=== PATIENT | female | born 1950 | race Caucasian/White ===

== ENCOUNTER 2024-01-01 17:15 | Emergency (ER) | payer MEDICARE, OTHER ==
[2024-01-01 17:19] VITALS: BP 160/65; PULSE 77
[2024-01-01] MEDS: Sodium Chloride 0.9% 1,000 ML IV SCH (17:43)
[2024-01-01 17:44] LABS: BASOPHILS ABSOLUTE AUTO 0.05 10^3/uL (0.00-0.50); BASOPHILS PERCENT AUTO 0.3 % (0-1); EOSINOPHILS ABSOLUTE AUTO 0.02 10^3/uL (0.00-1.50); EOSINOPHILS PERCENT AUTO 0.1 % (0-6); HEMATOCRIT 36.1 % (37.0-47.0); HEMOGLOBIN 11.3 g/dL (12.0-16.0); IMMATURE GRAN ABSOLUTE AUTO 0.11 10^3/uL (0.00-0.49); IMMATURE GRAN PERCENT AUTO 0.6 % (0.0-4.9); LYMPHOCYTES ABSOLUTE AUTO 2.27 10^3/uL (0.60-5.00); LYMPHOCYTES PERCENT AUTO 12.9 % (24-44); MEAN CORPUSCULAR HEMOGLOBIN 27.8 pg (27.0-32.0); MEAN CORPUSCULAR HGB CONC 31.3 g/dL (32.0-36.0); MEAN CORPUSCULAR VOLUME 88.9 fL (83.0-97.0); MONOCYTES ABSOLUTE AUTO 1.16 10^3/uL (0.00-1.50); MONOCYTES PERCENT AUTO 6.6 % (0-10); NEUTROPHILS ABSOLUTE AUTO 13.98 x10^3/uL (1.80-8.00); NEUTROPHILS PERCENT AUTO 79.5 % (41-71); PLATELET COUNT,PLT 284 10^3/uL (150-400); RED BLOOD CELL COUNT 4.06 x10^6/uL (4.00-5.50); WHITE BLOOD CELL COUNT,WBC 17.6 10^3/uL (4.0-11.0)
[2024-01-01] MEDS: Ondansetron 4 MG/2 ML SDV IVPUSH STA (17:46)
[2024-01-01 17:58] LABS: ALBUMIN 2.2 g/dL (3.4-5.0); BILIRUBIN TOTAL 0.2 mg/dL (0.0-1.0); C-REACTIVE PROTEIN 1.9 mg/dL (<=0.50); CALCIUM 8.1 mg/dL (8.4-10.1); CREATININE 1.7 mg/dL (0.6-1.0); EST CRCL DRUG DOSING (CG) 23.65 mL/min; POTASSIUM,K 4.3 mEq/L (3.5-5.0); PROTEIN TOTAL,TP 5.8 g/dL (6.4-8.2)
[2024-01-01 18:00] LABS: APPEARANCE,URINE CLEAR (CLEAR); BILIRUBIN,URINE NEGATIVE (NEGATIVE); COLOR,URINE YELLOW (YELLOW); GLUCOSE,URINE NEGATIVE (NEGATIVE); KETONES,URINE NEGATIVE (NEGATIVE); LEUKOCYTE ESTERASE,URINE NEGATIVE (NEGATIVE); NITRITE,URINE NEGATIVE (NEGATIVE); OCCULT BLOOD,URINE TRACE-INTACT (NEGATIVE); PH,URINE 5.5 (4.5-8.0); PROTEIN,URINE >=300 mg/dL (NEGATIVE); UROBILINOGEN,URINE 0.2 EU/dL (0.2-1.0)
[2024-01-01 18:16] LABS: BACTERIA,URINE OCCASIONAL /HPF (NOT SEEN); EPITHELIAL CELLS,URINE MODERATE /HPF (NOT SEEN); WBC,URINE 0-5 /HPF (0-5)
[2024-01-01] MEDS: Take Home: Ondansetron 4 MG Tab.DIS, 2 Tab Pack PO ONE (19:23)
[2024-01-01] MEDS: Vancomycin 125 MG Cap PO SCH (19:26)
== END 2024-01-01 20:00 | disposition home or self-care (01) ==
LOC: CC.ED 17:15
DX: A04.72 Enterocolitis due to Clostridium difficile, not specified as recurrent (principal); I10 Essential (primary) hypertension; Z79.899 Other long term (current) drug therapy
CPT/HCPCS: 36415; 80053; 81001; 82272; 85025; 86140; 87493; 96361; 96374; 99284; A9270; J2405; J7030

== ENCOUNTER 2024-02-13 15:00 | Inpatient (IN) | payer MEDICARE, OTHER ==
[2024-02-13] MEDS: Ondansetron 4 MG Tab.DIS PO ONE (15:20)
[2024-02-13] MEDS: Acetaminophen 500 MG Tab PO ONE (15:20)
[2024-02-13 15:33] LABS: APPEARANCE,URINE TURBID (CLEAR); BILIRUBIN,URINE NEGATIVE (NEGATIVE); COLOR,URINE YELLOW (YELLOW); GLUCOSE,URINE NEGATIVE (NEGATIVE); KETONES,URINE NEGATIVE (NEGATIVE); LEUKOCYTE ESTERASE,URINE LARGE (NEGATIVE); NITRITE,URINE NEGATIVE (NEGATIVE); OCCULT BLOOD,URINE LARGE (NEGATIVE); PROTEIN,URINE >=300 mg/dL (NEGATIVE); UROBILINOGEN,URINE 0.2 EU/dL (0.2-1.0)
[2024-02-13 15:45] LABS: BACTERIA,URINE MANY /HPF (NOT SEEN); RBC,URINE 50-75 /HPF (0-5); SQUAMOUS EPITHELIAL CELLS,UR NOT SEEN /HPF (NOT SEEN); WBC,URINE PACKED /HPF (0-5)
[2024-02-13 15:49] LABS: BASOPHILS ABSOLUTE AUTO 0.05 10^3/uL (0.00-0.50); BASOPHILS PERCENT AUTO 0.3 % (0-1); EOSINOPHILS ABSOLUTE AUTO 0.01 10^3/uL (0.00-1.50); EOSINOPHILS PERCENT AUTO 0.1 % (0-6); HEMOGLOBIN 11.2 g/dL (12.0-16.0); IMMATURE GRAN ABSOLUTE AUTO 0.06 10^3/uL (0.00-0.49); IMMATURE GRAN PERCENT AUTO 0.4 % (0.0-4.9); LYMPHOCYTES ABSOLUTE AUTO 2.44 10^3/uL (0.60-5.00); LYMPHOCYTES PERCENT AUTO 14.4 % (24-44); MEAN CORPUSCULAR HEMOGLOBIN 28.1 pg (27.0-32.0); MEAN CORPUSCULAR HGB CONC 31.1 g/dL (32.0-36.0); MEAN CORPUSCULAR VOLUME 90.5 fL (83.0-97.0); MONOCYTES PERCENT AUTO 3.5 % (0-10); NEUTROPHILS ABSOLUTE AUTO 13.75 x10^3/uL (1.80-8.00); NEUTROPHILS PERCENT AUTO 81.3 % (41-71); PLATELET COUNT,PLT 301 10^3/uL (150-400); RED BLOOD CELL COUNT 3.98 x10^6/uL (4.00-5.50); WHITE BLOOD CELL COUNT,WBC 16.9 10^3/uL (4.0-11.0)
[2024-02-13 16:02] LABS: ALBUMIN 2.1 g/dL (3.4-5.0); BILIRUBIN TOTAL 0.5 mg/dL (0.0-1.0); C-REACTIVE PROTEIN 5.57 mg/dL (<=0.50); CALCIUM 8.6 mg/dL (8.4-10.1); CREATININE 1.6 mg/dL (0.6-1.0); EST CRCL DRUG DOSING (CG) 25.13 mL/min; PROTEIN TOTAL,TP 5.9 g/dL (6.4-8.2)
[2024-02-13 16:04] LABS: LACTIC ACID 2.6 mmol/L (0.4-2.0)
[2024-02-13] MEDS ORDERED: Sodium Chloride 0.9% 10 ML Syringe FLUSH PRN (16:15)
[2024-02-13] MEDS: cefTRIAXone 2 GM Vial IVPUSH ONE (16:44)
[2024-02-13] MEDS ORDERED: Albuterol 6.7 GM Inhaler INH PRN ×2 (17:34→18:22)
[2024-02-13] MEDS ORDERED: Ondansetron 4 MG Tab.DIS PO PRN (17:38)
[2024-02-13] MEDS ORDERED: Ondansetron 4 MG/2 ML SDV IV PRN (17:38)
[2024-02-13] MEDS ORDERED: Acetaminophen 325 MG Tab PO PRN (17:38)
[2024-02-13] MEDS: Sodium Chloride 0.9% 1,000 ML IV ONE (18:10)
[2024-02-13] MEDS ORDERED: Formoterol/Mometasone 100-5 MCG 8.8 GM Inhaler INH PRN ×2 (18:24→18:26)
[2024-02-13] MEDS: Sodium Chloride 0.9% 1,000 ML IV SCH (19:14)
[2024-02-13] MEDS: amLODIPine 2.5 MG Tab PO SCH (19:50)
[2024-02-13] MEDS: Pantoprazole 40 MG Tab.CR PO SCH (19:50)
[2024-02-13] MEDS: Acetaminophen 500 MG Tab PO SCH (19:52)
[2024-02-13] MEDS: atorvaSTATin 10 MG Tab PO SCH (19:55)
[2024-02-13] MEDS: Losartan 100 MG Tab PO SCH (19:56)
[2024-02-13] MEDS ORDERED: Formoterol/Mometasone 100-5 MCG 8.8 GM Inhaler INH SCH (20:00)
[2024-02-14] MEDS: Levothyroxine 112 MCG Tab PO SCH (06:48)
[2024-02-14 07:12] LABS: BASOPHILS ABSOLUTE AUTO 0.05 10^3/uL (0.00-0.50); BASOPHILS PERCENT AUTO 0.2 % (0-1); EOSINOPHILS ABSOLUTE AUTO 0.01 10^3/uL (0.00-1.50); HEMATOCRIT 29.3 % (37.0-47.0); HEMOGLOBIN 9.1 g/dL (12.0-16.0); IMMATURE GRAN ABSOLUTE AUTO 0.06 10^3/uL (0.00-0.49); IMMATURE GRAN PERCENT AUTO 0.3 % (0.0-4.9); LYMPHOCYTES ABSOLUTE AUTO 2.15 10^3/uL (0.60-5.00); LYMPHOCYTES PERCENT AUTO 10.3 % (24-44); MEAN CORPUSCULAR HEMOGLOBIN 28.3 pg (27.0-32.0); MEAN CORPUSCULAR HGB CONC 31.1 g/dL (32.0-36.0); MONOCYTES PERCENT AUTO 5.8 % (0-10); NEUTROPHILS ABSOLUTE AUTO 17.33 x10^3/uL (1.80-8.00); NEUTROPHILS PERCENT AUTO 83.4 % (41-71); PLATELET COUNT,PLT 240 10^3/uL (150-400); RED BLOOD CELL COUNT 3.22 x10^6/uL (4.00-5.50)
[2024-02-14 07:27] LABS: WHITE BLOOD CELL COUNT,WBC 20.8 10^3/uL (4.0-11.0)
[2024-02-14] MEDS: Furosemide 20 MG Tab PO SCH (07:33)
[2024-02-14] MEDS: Lactobacillus Rhamnosus GG (Probiotic) Cap PO SCH (07:34)
[2024-02-14] MEDS: glipiZIDE 2.5 MG Tab.ER PO SCH (07:41)
[2024-02-14 07:54] LABS: ALBUMIN 1.5 g/dL (3.4-5.0); BILIRUBIN TOTAL 0.3 mg/dL (0.0-1.0); C-REACTIVE PROTEIN 12.28 mg/dL (<=0.50); CALCIUM 7.8 mg/dL (8.4-10.1); CREATININE 1.9 mg/dL (0.6-1.0); EST CRCL DRUG DOSING (CG) 21.16 mL/min; POTASSIUM,K 3.7 mEq/L (3.5-5.0)
[2024-02-14] MEDS: Enoxaparin 30 MG/0.3 ML Syringe SUBCUT SCH (11:37)
[2024-02-14] MEDS: cefTRIAXone 1 GM Vial IVPUSH SCH (15:49)
[2024-02-15 08:00] LABS: ALBUMIN 1.5 g/dL (3.4-5.0); BILIRUBIN TOTAL 0.1 mg/dL (0.0-1.0); C-REACTIVE PROTEIN 11.1 mg/dL (<=0.50); CALCIUM 7.9 mg/dL (8.4-10.1); CREATININE 1.8 mg/dL (0.6-1.0); EST CRCL DRUG DOSING (CG) 22.34 mL/min; POTASSIUM,K 3.8 mEq/L (3.5-5.0)
[2024-02-15 08:05] LABS: BASOPHILS ABSOLUTE AUTO 0.03 10^3/uL (0.00-0.50); BASOPHILS PERCENT AUTO 0.3 % (0-1); EOSINOPHILS ABSOLUTE AUTO 0.18 10^3/uL (0.00-1.50); EOSINOPHILS PERCENT AUTO 1.9 % (0-6); HEMATOCRIT 28.9 % (37.0-47.0); HEMOGLOBIN 9.1 g/dL (12.0-16.0); IMMATURE GRAN ABSOLUTE AUTO 0.08 10^3/uL (0.00-0.49); IMMATURE GRAN PERCENT AUTO 0.8 % (0.0-4.9); LYMPHOCYTES ABSOLUTE AUTO 1.39 10^3/uL (0.60-5.00); LYMPHOCYTES PERCENT AUTO 14.3 % (24-44); MEAN CORPUSCULAR HEMOGLOBIN 28.6 pg (27.0-32.0); MEAN CORPUSCULAR HGB CONC 31.5 g/dL (32.0-36.0); MEAN CORPUSCULAR VOLUME 90.9 fL (83.0-97.0); MONOCYTES ABSOLUTE AUTO 0.75 10^3/uL (0.00-1.50); MONOCYTES PERCENT AUTO 7.7 % (0-10); NEUTROPHILS ABSOLUTE AUTO 7.27 x10^3/uL (1.80-8.00); PLATELET COUNT,PLT 221 10^3/uL (150-400); RED BLOOD CELL COUNT 3.18 x10^6/uL (4.00-5.50); WHITE BLOOD CELL COUNT,WBC 9.7 10^3/uL (4.0-11.0)
[2024-02-15] MEDS: Vancomycin 125 MG Cap PO STA (15:42)
[2024-02-15] MEDS: Losartan 25 MG Tab PO SCH (19:53)
[2024-02-16] MEDS: Sulfamethoxazole/Trimethoprim 800-160 MG Tab PO SCH (07:23)
[2024-02-16] MEDS: Vancomycin 125 MG Cap PO SCH (07:24)
[2024-02-16 07:47] LABS: BASOPHILS ABSOLUTE AUTO 0.03 10^3/uL (0.00-0.50); BASOPHILS PERCENT AUTO 0.4 % (0-1); EOSINOPHILS PERCENT AUTO 2.6 % (0-6); HEMATOCRIT 32.7 % (37.0-47.0); HEMOGLOBIN 9.9 g/dL (12.0-16.0); IMMATURE GRAN ABSOLUTE AUTO 0.09 10^3/uL (0.00-0.49); IMMATURE GRAN PERCENT AUTO 1.2 % (0.0-4.9); LYMPHOCYTES ABSOLUTE AUTO 1.56 10^3/uL (0.60-5.00); LYMPHOCYTES PERCENT AUTO 20.6 % (24-44); MEAN CORPUSCULAR HEMOGLOBIN 27.7 pg (27.0-32.0); MEAN CORPUSCULAR HGB CONC 30.3 g/dL (32.0-36.0); MEAN CORPUSCULAR VOLUME 91.6 fL (83.0-97.0); MONOCYTES ABSOLUTE AUTO 0.59 10^3/uL (0.00-1.50); MONOCYTES PERCENT AUTO 7.8 % (0-10); NEUTROPHILS ABSOLUTE AUTO 5.09 x10^3/uL (1.80-8.00); NEUTROPHILS PERCENT AUTO 67.4 % (41-71); PLATELET COUNT,PLT 260 10^3/uL (150-400); RED BLOOD CELL COUNT 3.57 x10^6/uL (4.00-5.50); WHITE BLOOD CELL COUNT,WBC 7.6 10^3/uL (4.0-11.0)
[2024-02-16 08:27] LABS: ALBUMIN 1.7 g/dL (3.4-5.0); BILIRUBIN TOTAL 0.1 mg/dL (0.0-1.0); C-REACTIVE PROTEIN 5.2 mg/dL (<=0.50); CREATININE 1.5 mg/dL (0.6-1.0); EST CRCL DRUG DOSING (CG) 26.81 mL/min; PROTEIN TOTAL,TP 5.6 g/dL (6.4-8.2)
[2024-02-16 09:32] LABS: POTASSIUM,K 4.2 mEq/L (3.5-5.0)
[2024-02-16 11:38] VITALS: BP 137/52; PULSE 60
== END 2024-02-16 12:45 | disposition home or self-care (01) | DRG 699 ==
LOC: CC.ED 15:00 → UNDOADMIN 16:53 → CC.MS 16:53
PROVIDERS: ADMIT Nurse Practitioner Family; ATTEND Nurse Practitioner Family
DX: N12 Tubulo-interstitial nephritis, not specified as acute or chronic (principal); T83.512A Infection and inflammatory reaction due to nephrostomy catheter, initial encounter; E87.20 Acidosis, unspecified; N10 Acute pyelonephritis; N17.9 Acute kidney failure, unspecified; E78.00 Pure hypercholesterolemia, unspecified; I10 Essential (primary) hypertension; M19.90 Unspecified osteoarthritis, unspecified site; E11.9 Type 2 diabetes mellitus without complications; D72.829 Elevated white blood cell count, unspecified; Z79.899 Other long term (current) drug therapy; Z79.84 Long term (current) use of oral hypoglycemic drugs; Z79.51 Long term (current) use of inhaled steroids; Z90.49 Acquired absence of other specified parts of digestive tract; Z98.890 Other specified postprocedural states; Z86.19 Personal history of other infectious and parasitic diseases
CPT/HCPCS: 36415; 71046; 80053; 81001; 83605; 85025; 86140; 87040; 87086; 87088; 87186; 87804; 96374; 99285-25; A9270-GY; J0696; J1650; J7030; U0002